=== PATIENT | female | born 1960 | race Caucasian/White ===

== ENCOUNTER → 2017-05-05 | Day surgery (SDC) | payer OTHER ==
[2017-05-05 11:31] LABS: HCT 45.9 % (37.0-47.0); HGB 15.7 g/dl (12.5-16.0); MCHC 34.2 g/dL (32.0-36.0); MCV 93.5 fL (78.0-100.0); MPV 10.9 fL (6.0-9.5); RBC 4.91 M/uL (4.20-5.40); RDW 14.1 % (11.5-14.0); WBC 9.4 K/uL (4.0-10.5)
[2017-05-05 12:13] LABS: ALBUMIN 4.4 g/dL (3.5-5.0); BILIRUBIN - TOTAL 0.4 mg/dL (0.1-1.0); CREATININE 0.7 mg/dL (0.5-1.0); GLOBULIN (CALCULATION) 2.9 g/dL (2.2-4.2); POTASSIUM 3.8 mmol/L (3.5-5.1); TOTAL PROTEIN 7.3 g/dL (6.4-8.3)
== END | disposition home or self-care (01) ==
LOC: FAS 11:07
PROVIDERS: Surgery
DX: K64.1 Second degree hemorrhoids (principal); K57.90 Diverticulosis of intestine, part unspecified, without perforation or abscess without bleeding; F32.9 Major depressive disorder, single episode, unspecified; D75.1 Secondary polycythemia; M06.9 Rheumatoid arthritis, unspecified; E55.9 Vitamin D deficiency, unspecified; Z90.710 Acquired absence of both cervix and uterus; Z98.890 Other specified postprocedural states; Z79.899 Other long term (current) drug therapy
CPT/HCPCS: 36415; 80053; J1100; J2704